=== PATIENT | female | born 1965 | race Caucasian/White ===

== ENCOUNTER 2020-11-25 14:15 | Inpatient (IN) | payer OTHER ==
[~2020-11-25] VITALS: Ht 167.6 cm; Wt 81.6 kg
[~2020-11-25 14:15] MED LIST: AUGMENTIN 875-1 EACH PO; DOXYCYCLINE HY100 MG PO; FLONASE 0.05% N16 GM; PREDNISONE 20 M20 MG GT; SYMBICORT 80-10.2 GM INH
[2020-11-25 15:35] LABS: HEMOGLOBIN 14.7 gm/dl (12.3-15.3); RED BLOOD COUNT 5.07 M/UL (4.00-5.10); WHITE BLOOD COUNT 15.2 K/UL (4.5-11.0)
[2020-11-25 15:54] LABS: BUN/CREATININE RATIO 23 (0-10)
[2020-11-26 05:01] LABS: HEMOGLOBIN 12.4 gm/dl (12.3-15.3); RED BLOOD COUNT 4.29 M/UL (4.00-5.10); WHITE BLOOD COUNT 11.1 K/UL (4.5-11.0)
[2020-11-26 05:24] LABS: BUN/CREATININE RATIO 23 (0-10)
[2020-11-26] MEDS ORDERED: ACETAMINOPHEN500 MG PO (09:35)
[2020-11-26] MEDS ORDERED: PIOGLITAZONE HC30 MG PO (09:36)
[2020-11-26] MEDS ORDERED: LISINOPRIL40 MG PO (09:36)
[2020-11-26] MEDS ORDERED: LEVOTHYROXINE175 MCG PO (09:36)
[2020-11-26] MEDS ORDERED: AMLODIPINE BESY10 MG PO (09:36)
[2020-11-26] MEDS ORDERED: TRAZODONE HCL150 MG PO (09:37)
[2020-11-26] MEDS ORDERED: CETIRIZINE HCL10 MG PO (09:37)
[2020-11-26] MEDS ORDERED: GABAPENTIN300 MG PO (09:38)
[2020-11-26] MEDS ORDERED: DULOXETINE HCL60 MG PO (09:38)
[2020-11-26] MEDS ORDERED: METFORMIN HCL1000 MG PO (09:39)
[2020-11-26] MEDS ORDERED: VENTOLIN HFA 66.7 GM INH (09:39)
[2020-11-26] MEDS ORDERED: TRULANCE3 MG PO (09:41)
[2020-11-27 02:42] LABS: HEMOGLOBIN 12.6 gm/dl (12.3-15.3); RED BLOOD COUNT 4.61 M/UL (4.00-5.10); WHITE BLOOD COUNT 8.7 K/UL (4.5-11.0)
[2020-11-27 03:13] LABS: BUN/CREATININE RATIO 19 (0-10)
[2020-11-28 05:03] LABS: HEMOGLOBIN 12.2 gm/dl (12.3-15.3); RED BLOOD COUNT 4.26 M/UL (4.00-5.10); WHITE BLOOD COUNT 7.1 K/UL (4.5-11.0)
[2020-11-28 05:21] LABS: BUN/CREATININE RATIO 14 (0-10)
[2020-11-28] MEDS ORDERED: LEVOFLOXACIN750 MG PO (19:15)
== END 2020-11-28 19:17 | disposition left against medical advice (07) | DRG 872 ==
LOC: ER1 14:15 → CDU 23:06 → M/S 11-26 14:38
PROVIDERS: Internal Medicine; Physician Assistant; ADMIT Internal Medicine
DX: A41.9 Sepsis, unspecified organism (principal); N10 Acute pyelonephritis; I10 Essential (primary) hypertension; E78.5 Hyperlipidemia, unspecified; Z20.822 Contact with and (suspected) exposure to COVID-19; E11.9 Type 2 diabetes mellitus without complications; Z53.29 Procedure and treatment not carried out because of patient's decision for other reasons; J44.9 Chronic obstructive pulmonary disease, unspecified; F17.210 Nicotine dependence, cigarettes, uncomplicated; F41.9 Anxiety disorder, unspecified; K59.00 Constipation, unspecified; E03.9 Hypothyroidism, unspecified; E87.6 Hypokalemia; Z79.84 Long term (current) use of oral hypoglycemic drugs; Z79.899 Other long term (current) drug therapy; Z79.890 Hormone replacement therapy
CPT/HCPCS: 0240U; 36415; 71045; 80048; 80053; 81001; 82962; 83690; 85025; 86140; 87040; 87086; 93005; 94640; 94664; 94760; 96374; 96375; 99285; G0378; J0696; J0713; J1650; J2270; Q9967